=== PATIENT | male | born 1995 | race Caucasian/White ===

== ENCOUNTER 2020-04-19 16:48 | Observation (INO) ==
[2020-04-19] MEDS ORDERED: HYDROmorphone 2 MG/1 ML VIAL IV ONE (18:50)
[2020-04-19] MEDS ORDERED: SODIUM CHLORIDE 0.9% 1,000 ML IV STA (18:50)
[2020-04-19] MEDS ORDERED: ONDANSETRON 4 MG/2 ML VIAL IV STA (18:50)
[2020-04-19 18:55] LABS: Basophils # 0.1 10*3/uL (0.0-0.2); Basophils % 0.4 % (0.0-0.8); Eosinophils # 0.2 10*3/uL (0.0-0.87); Eosinophils % 1.3 % (0.00-10.9); Hematocrit 37.9 VOL% (42.0-52.0); Hemoglobin 12.6 GM/DL (14.0-18.0); Immature Granulocytes % 0.6 %; Lymphocytes # 1.7 10*3/uL (1.4-4.0); Lymphocytes % 9.6 % (21.2-54.2); Mean Corpuscular HGB Conc 33.2 GM/DL (32-36); Mean Corpuscular Volume 91.3 FL (87-102); Mean Platelet Volume 9.2 FL (9.6-12.0); Monocytes % 7.4 % (1.7-12.7); Neutrophils % 80.7 % (38.7-73.9); Platelet Count 510 T/CUMM (130-400); Red Blood Count 4.15 MC/CUMM (3.8-5.5); Red Cell Distribution Width 14.1 % (9.3-17.3); White Blood Count 17.2 T/CUMM (4-12)
[2020-04-19 19:09] LABS: Albumin 3.4 G/DL (3.4-5.0); Bilirubin,Total 0.6 MG/DL (0.2-1.0); Calcium 9.5 MG/DL (8.5-10.1); Osmolality,Calculated 272.1 MOS/KG (273-304); Total Protein 7.4 G/DL (6.4-8.3)
[2020-04-19] MEDS ORDERED: PROMETHAZINE 25 MG/1 ML VIAL IM PRN (19:15)
[2020-04-19] MEDS ORDERED: ONDANSETRON 4 MG/2 ML VIAL IV PRN (19:15)
[2020-04-19] MEDS ORDERED: GLUCAGON 1 MG VIAL IM PRN (19:15)
[2020-04-19] MEDS ORDERED: DEXTROSE 50% 25 GM/50 ML VIAL IV PRN (19:15)
[2020-04-19] MEDS ORDERED: TEMAZEPAM 15 MG CAPSULE PO PRN (23:25)
[2020-04-20] MEDS: SODIUM CHLORIDE 0.9% 1,000 ML IV SCH ×3 (00:10→19:32)
[2020-04-20] MEDS: HYDROmorphone 2 MG/1 ML VIAL IV PRN ×3 (01:25→23:49)
[2020-04-20] MEDS: MORPHINE ER 15 MG TABLET PO SCH ×3 (02:07→16:59)
[2020-04-20] MEDS: AMITRIPTYLINE 25 MG TABLET PO PRN (02:27)
[2020-04-20] MEDS: oxyCODONE ER 10 MG TABLET PO PRN (08:43)
[2020-04-20] MEDS: HydrOXYzine PAMOATE 50 MG CAPSULE PO SCH ×4 (08:44→21:16)
[2020-04-20] MEDS: GABAPENTIN 600 MG TABLET PO SCH ×3 (08:44→21:16)
[2020-04-20] MEDS ORDERED: fentaNYL 25 MCG/HR PATCH TRANSDERM SCH ×2 (10:00→21:00)
[2020-04-20] MEDS ORDERED: fentaNYL 100 MCG/HR PATCH TRANSDERM SCH ×2 (10:00→21:00)
[2020-04-20] MEDS ORDERED: fentaNYL 50 MCG/HR PATCH TRANSDERM SCH (11:00)
[2020-04-20] MEDS ORDERED: METHYLNALTREXONE 12 MG/0.6 ML VIAL SUBCUT ONE (11:09)
[2020-04-20] MEDS ORDERED: POLYETHYLENE GLYCOL POWDER 17 GM PACK PO PRN (11:11)
[2020-04-20] MEDS ORDERED: SENNA 8.6 MG TABLET PO PRN (11:11)
[2020-04-20] MEDS: MORPHINE IR 15 MG TABLET PO PRN (15:28)
[2020-04-20 16:50] LABS: Basophils % 0.3 % (0.0-0.8); Eosinophils # 0.2 10*3/uL (0.0-0.87); Eosinophils % 1.4 % (0.00-10.9); Hemoglobin 12.2 GM/DL (14.0-18.0); Immature Granulocytes % 0.3 %; Immature Granulocytes Absolute 0.03 #; Lymphocytes # 0.8 10*3/uL (1.4-4.0); Lymphocytes % 6.9 % (21.2-54.2); Mean Corpuscular Volume 91.8 FL (87-102); Monocytes % 7.4 % (1.7-12.7); Neutrophils % 83.7 % (38.7-73.9); Platelet Count 378 T/CUMM (130-400); Red Blood Count 4.03 MC/CUMM (3.8-5.5); Red Cell Distribution Width 13.9 % (9.3-17.3); White Blood Count 10.8 T/CUMM (4-12)
[2020-04-20] MEDS ORDERED: SCOPOLAMINE 1.5 MG PATCH TRANSDERM SCH (18:00)
[2020-04-21] MEDS: oxyCODONE ER 10 MG TABLET PO PRN (00:05)
[2020-04-21] MEDS: MORPHINE ER 15 MG TABLET PO SCH ×5 (00:40→21:35)
[2020-04-21] MEDS: HYDROmorphone 2 MG/1 ML VIAL IV PRN ×2 (03:27→08:23)
[2020-04-21] MEDS: SODIUM CHLORIDE 0.9% 1,000 ML IV SCH ×3 (05:16→16:25)
[2020-04-21] MEDS: MORPHINE IR 15 MG TABLET PO PRN ×2 (05:26→09:35)
[2020-04-21] MEDS: ALPRAZolam 0.5 MG TABLET PO PRN ×2 (05:27→16:21)
[2020-04-21 07:35] LABS: Calcium 9.5 MG/DL (8.5-10.1)
[2020-04-21] MEDS: HydrOXYzine PAMOATE 50 MG CAPSULE PO SCH ×4 (08:17→21:36)
[2020-04-21] MEDS: GABAPENTIN 600 MG TABLET PO SCH ×3 (08:17→22:33)
[2020-04-21] MEDS ORDERED: HYDROmorphone 2 MG TABLET PO PRN (08:29)
[2020-04-21] MEDS: POLYETHYLENE GLYCOL POWDER 17 GM PACK PO SCH (10:50)
[2020-04-21] MEDS: SENNA 8.6 MG TABLET PO SCH ×2 (10:50→21:36)
[2020-04-21] MEDS ORDERED: LIDOCAINE/PRILOCAINE CREAM 5 GM TUBE TOP ONE (14:39)
[2020-04-21] MEDS: NICOTINE 21 MG/24 HR PATCH TRANSDERM PRN (16:48)
[2020-04-21] MEDS ORDERED: MORPHINE ER 15 MG TABLET PO SCH (21:00)
[2020-04-21] MEDS: AMITRIPTYLINE 25 MG TABLET PO PRN (21:36)
[2020-04-22] MEDS: oxyCODONE ER 10 MG TABLET PO PRN ×2 (00:47→07:24)
[2020-04-22] MEDS: ALPRAZolam 0.5 MG TABLET PO PRN (00:47)
[2020-04-22] MEDS: SODIUM CHLORIDE 0.9% 1,000 ML IV SCH ×2 (01:00→05:11)
[2020-04-22] MEDS: MORPHINE IR 15 MG TABLET PO PRN ×2 (02:22→12:44)
[2020-04-22] MEDS: SENNA 8.6 MG TABLET PO SCH (08:27)
[2020-04-22] MEDS: HydrOXYzine PAMOATE 50 MG CAPSULE PO SCH ×2 (08:27→14:06)
[2020-04-22] MEDS: NICOTINE 21 MG/24 HR PATCH TRANSDERM PRN (08:28)
[2020-04-22] MEDS: MORPHINE ER 15 MG TABLET PO SCH ×2 (08:28→14:25)
[2020-04-22] MEDS: POLYETHYLENE GLYCOL POWDER 17 GM PACK PO SCH (08:30)
[2020-04-22] MEDS: GABAPENTIN 600 MG TABLET PO SCH ×2 (08:39→14:25)
[2020-04-22 09:36] VITALS: BP 124/71
== END 2020-04-22 14:45 | disposition home health service (06) ==
LOC: N.ED 16:48 → N.EDINP 16:48 → SUATTDRO 19:15 → SUPCPDRO 19:15 → N.4E 19:56
PROVIDERS: ADMIT Internal Medicine; ATTEND Internal Medicine